=== PATIENT | female | born 1995 | race Caucasian/White ===

== ENCOUNTER 2023-11-06 19:56 | Emergency (ER) | payer OTHER, SELFPAY ==
[2023-11-06 20:12] VITALS: BP 130/90; PULSE 94; RESP 18; TEMP 37.1; O2SAT 97; BMI 23.0
--- NOTE | 2023-11-06 20:16 | ED.GENADULT ---
HPI - General Adult General Chief complaint: Anxiety Stated complaint: Anxiety/not feeling right Time Seen by Provider: 11/07/23 00:01 Source: patient Mode of arrival: ambulatory Limitations: no limitations History of Present Illness HPI narrative: Patient without diagnosis of psychiatric disease been feeling very anxious for last few days history of same in the past but very mild patient denies any depression no suicidal ideation no hallucination no family history of psychiatric disease patient feels foggy and able to sleep well denies any substance abuse Related Data Previous Rx's Medication Instructions Recorded lorazepam 1 mg tablet (Ativan) 1 mg PO BEDTIME PRN anxiety/sleep 11/07/23 #10 tabs sertraline 50 mg tablet (Zoloft) 50 mg PO DAILY #90 tabs 11/07/23 Allergies Allergy/AdvReac Type Severity Reaction Status Date / Time No Known Allergies Allergy Unverified 07/23/20 19:12 [No Known Allergies*] Review of Systems Review of Systems: Yes all other systems are reviewed and are negative PMFSH Social History Social History Advance Directives: No Advance Directives Information Provided: No Physical Exam ED Vital Signs: Vital Signs - 24 hr 11/06/23 20:12 Temperature 98.8 F Pulse Rate 94 Respiratory Rate 18 Blood Pressure 130/90 H Pulse Oximetry 97 Oxygen Delivery Method Room Air BMI result Body Mass Index 23.0 Appearance: Alert. Oriented X3. No acute distress. Anxious Eyes: PERRLA, No Nystagmus ENT: Pharynx normal. Oral Mucosa moist Neck: Normal inspection. Neck supple. CVS: Normal heart rate and rhythm. Pulses normal. Respiratory: No respiratory distress. Equal air entry bilateral, Abdomen: Soft and nontender. Bowel sounds are present, no mass palpable, no CVA tenderness Skin: Skin warm and dry. Normal skin color. Normal skin turgor. Extremities: No lower extremity edema. No calf tenderness Neuro: Oriented X 3. Course Course Course Narrative: This is a rapid medical exam. deferred additional HPI, ROS, PE to primary provider. 27 yo female with no known medical history here with complaints of increasing anxiety (palpitations, crying all the time, chest tightness) over the last 4 days. No SI/HI. States she has a stressful job. Does not have a therapist. Not currently on any medications. Will need labs, UA, ur , EKG VSS Medical Decision Making Medical Decision Making [facility] Narrative: Patient with anxiety relieve his short course of Ativan as needed for sleep and anxiety started on Zoloft advised to follow-up with PCP/therapist Lab Data [facility] Lab Attestation statement: I reviewed the patient's lab results. 11/06/23 21:32 11/06/23 21:32 Labs: Lab Results 11/06/23 11/06/23 Range/Units 21:32 23:22 WBC 6.5 (4.8-10.8) X10*3/uL RBC 4.46 (4.20-5.50) X10*6/uL Hgb 13.7 (12.0-16.0) g/dl Hct 40.0 (37.0-47.0) % MCV 89.7 (80.0-98.0) fL MCH 30.7 (27.0-33.0) pg MCHC 34.3 (31.0-35.0) g/dl RDW 11.6 (11.0-16.0) % Plt Count 245 (160-400) X10*3/uL MPV 9.4 (9.4-12.3) fL Immature Gran % (Auto) 0.2 (0.0-0.4) % Neut % (Auto) 63.5 (45-73) % Lymph % (Auto) 26.6 (20-40) % [place] % (Auto) 6.7 (2-11) % Eos % (Auto) 2.8 (0-4) % Baso % (Auto) 0.2 (0-2) % Lymph # (Auto) 1.7 (1.2-4.9) X10*3/uL [place] # (Auto) 0.4 (0.1-1.2) X10*3/uL Eos # (Auto) 0.2 (0.0-0.4) X10*3/uL Baso # (Auto) 0.0 (0.0-0.2) X10*3/uL Abs Immat Gran (auto) 0.01 (0.00-0.03) X10*3/uL Absolute Neuts (auto) 4.1 (2.0-8.3) x10*3/uL Absolute Nucleated RBC 0.000 (0.0-0.012) X10*3/uL Nucleated RBC % (auto) 0.0 (0.0-0.2) /100WBC Sodium 143 (135-145) mmol/L Potassium 3.9 (3.3-5.1) mmol/L Chloride 108 (96-108) mmol/L Carbon Dioxide 24 (22-29) mmol/L Anion Gap 15 (12-20) BUN 16 (9-16) mg/dL Creatinine 0.86 (0.5-1.4) mg/dL Estim Creat Clear Calc 71.8 Estimated GFR > 60 Random Glucose 103 (60-115) mg/dL Calcium 9.3 (8.4-10.2) mg/dL Total Bilirubin 0.7 (0.0-1.0) mg/dL Direct Bilirubin 0.2 (0.0-0.5) mg/dL AST 19 (5-31) U/L ALT 11 (0-31) U/L Alkaline Phosphatase 65 (39-117) U/L Troponin I High Sens < 2.7 (<3.5-17.0) ng/L Total Protein 8.1 H (6.5-8.0) g/dL Albumin 4.7 (3.5-5.0) g/dL Urine Color Yellow Urine Appearance Clear Urine pH 5.5 (5.0-9.0) Ur Specific [place] 1.015 (1.005-1.025) Urine Protein Negative (Neg-Trace) mg/dL Urine Glucose (UA) Negative (Negative) mg/dL Urine Ketones Negative (Negative) mg/dL Urine Blood Trace H (Negative) Urine Nitrite Negative (Negative) Ur Leukocyte Esterase Negative (Negative) Urine RBC 0-2 (0-2) /HPF Urine WBC 0-5 (0-5) /HPF Ur Squamous Epith Cells 0-2 (0-2) /HPF Urine Bacteria None Seen (None Seen) Hyaline Casts 0-2 (0-2) /LPF Urine Test NEGATIVE (NEGATIVE) Urine Opiates Screen Not Detected (Not Detect) Urine Fentanyl Screen Not Detected (Not Detect) Ur Barbiturates Screen Not Detected (Not Detect) Ur Phencyclidine Scrn Not Detected (Not Detect) Ur Amphetamines Screen Not Detected (Not Detect) U Benzodiazepines Scrn Not Detected (Not Detect) Urine Cocaine Screen Not Detected (Not Detect) U Marijuana (THC) Screen Not Detected (Not Detect) Ethyl Alcohol < 10 mg/dL Discharge Plan Discharge Clinical Impression: Acute anxiety Patient Disposition: Home, Self-Care Instructions: Generalized Anxiety Disorder (ED) Additional Instructions: Avoid caffeine drinks Take medication to relax and sleep as prescribed Start taking Zoloft for maintenance therapy Follow-up with therapist Prescriptions: New lorazepam [Ativan] 1 mg tablet 1 mg PO BEDTIME PRN (Reason: anxiety/sleep) Qty: 10 0RF sertraline [Zoloft] 50 mg tablet 50 mg PO DAILY Qty: 90 0RF
--- NOTE | 2023-11-06 20:21 | ECG_ITS ---
Test Reason : anxity Blood Pressure : / mmHG Vent. Rate : 098 BPM Atrial Rate : 098 BPM P-R Int : 124 ms QRS Dur : 086 ms QT Int : 350 ms P-R-T Axes : 069 087 023 degrees QTc Int : 446 ms Normal sinus rhythm Possible Left atrial enlargement Borderline ECG No previous ECGs available Referred By: Shima Merrill Electronically Signed By:Quintin Anaya
--- NOTE | 2023-11-06 21:34 | MHC.EDTECH ---
PATIENT BLOOD DRAWN AND SENT TO LAB ,EKG TAKEN AND WAS READ BY PROVIDER .
[2023-11-06 21:36] LABS: MANUAL DIFF FLAG NO
[2023-11-06 21:39] LABS: Basophils Percent Auto 0.2 % (0-2); Eosinophils Absolute Auto 0.2 X10*3/uL (0.0-0.4); Eosinophils Percent Auto 2.8 % (0-4); Hemoglobin 13.7 g/dl (12.0-16.0); Imm Gran Abs Auto 0.01 X10*3/uL (0.00-0.03); Imm Gran Pct Auto 0.2 % (0.0-0.4); Lymphocytes Absolute Auto 1.7 X10*3/uL (1.2-4.9); Lymphocytes Percent Auto 26.6 % (20-40); Mean Corpuscular HGB Conc 34.3 g/dl (31.0-35.0); Mean Corpuscular Hemoglobin 30.7 pg (27.0-33.0); Mean Corpuscular Volume 89.7 fL (80.0-98.0); Mean Platelet Volume 9.4 fL (9.4-12.3); Monocytes Absolute Auto 0.4 X10*3/uL (0.1-1.2); Monocytes Percent Auto 6.7 % (2-11); Neutrophils Absolute Auto 4.1 x10*3/uL (2.0-8.3); Neutrophils Percent Auto 63.5 % (45-73); Platelet Count 245 X10*3/uL (160-400); Red Blood Count 4.46 X10*6/uL (4.20-5.50); Red Cell Distribution Width 11.6 % (11.0-16.0); White Blood Count 6.5 X10*3/uL (4.8-10.8)
[2023-11-06 21:59] LABS: Ethanol < 10 mg/dL
[2023-11-06 22:01] LABS: Alanine Aminotransferase 11 U/L (0-31); Albumin Level 4.7 g/dL (3.5-5.0); Alkaline Phosphatase 65 U/L (39-117); Anion Gap 15 (12-20); Aspartate Amino Transferase 19 U/L (5-31); Bilirubin Direct 0.2 mg/dL (0.0-0.5); Bilirubin Total 0.7 mg/dL (0.0-1.0); Blood Urea Nitrogen 16 mg/dL (9-16); Calcium 9.3 mg/dL (8.4-10.2); Carbon Dioxide 24 mmol/L (22-29); Chloride 108 mmol/L (96-108); Creatinine Clr Calc Pharmacy 71.8; Estimated Glomerular Filt Rate > 60; Glucose Random 103 mg/dL (60-115); Potassium 3.9 mmol/L (3.3-5.1); Sodium 143 mmol/L (135-145); Total Protein 8.1 g/dL (6.5-8.0)
[2023-11-06 22:09] LABS: Troponin-I High Sensitivity < 2.7 ng/L (<3.5-17.0)
[2023-11-06 23:31] LABS: UPreg QC Valid YES; Urine Pregnancy NEGATIVE (NEGATIVE)
[2023-11-06 23:37] LABS: Amphetamine Screen Urine Not Detected (Not Detect); Barbiturates, Urine Not Detected (Not Detect); Benzodiazepines Screen Urine Not Detected (Not Detect); Cannabinoid Screen Urine Not Detected (Not Detect); Cocaine Screen Urine Not Detected (Not Detect); Fentanyl, urine Not Detected (Not Detect); Opiate Screen Urine Not Detected (Not Detect); Phencyclidine Screen Urine Not Detected (Not Detect)
[2023-11-07 00:28] LABS: Appearance Urine Clear; Color Urine Yellow; Glucose Urine UA Negative (Negative); Leukocyte Esterase Urine Negative (Negative); Nitrite Urine Negative (Negative); PH 5.5 (5.0-9.0); Specific Gravity - Urine 1.015 (1.005-1.025); UMIC TRIGGER UA YES; Urine Blood Trace (Negative); Urine Ketones Negative (Negative); Urine Protein Negative (Neg-Trace)
[2023-11-07 00:34] LABS: Bacteria Urine None Seen (None Seen); Hyaline Casts Urine 0-2 /LPF (0-2); RBC Urine 0-2 /HPF (0-2); Squamous Epithelial Cell Urine 0-2 /HPF (0-2); WBC Urine 0-5 /HPF (0-5)
[2023-11-07] MEDS: LORazepam 1 MG TABLET PO (00:47)
== END 2023-11-07 00:51 | disposition home or self-care (01) ==
PROVIDERS: Nurse Practitioner Family; Emergency Provider Internal Medicine
DX: F41.9 Anxiety disorder, unspecified (principal); R00.2 Palpitations; R07.9 Chest pain, unspecified; R77.9 Abnormality of plasma protein, unspecified
CPT/HCPCS: 36415; 80048; 80076; 80307; 81001; 81025; 84484; 85025; 93005; 99284; 99285

== ENCOUNTER → 2023-11-06 20:21 | Outpatient (BNV) | payer OTHER, SELFPAY | PROVIDERS: Emergency Provider Internal Medicine; Visit Provider Internal Medicine Cardiovascular Disease | DX: F41.1 Generalized anxiety disorder (principal) | CPT/HCPCS: 93010 ==